=== PATIENT | male | born 1950 ===

== ENCOUNTER 2018-08-22 01:44 | Emergency (ER) | payer OTHER ==
[~2018-08-22] VITALS: Ht 170.2 cm; Wt 74.8 kg
[2018-08-22] MEDS ORDERED: FOLIC ACID1 MG (01:52)
[2018-08-22] MEDS ORDERED: LEVOTHYROXINE50 MCG (01:52)
[2018-08-22] MEDS ORDERED: ESCITALOPRAM OXA5 MG (01:52)
[2018-08-22] MEDS ORDERED: LAMICTAL XR200 MG (01:53)
[2018-08-22] MEDS ORDERED: MECLIZINE HCL25 M1 PO (08:36)
== END 2018-08-22 09:04 | disposition home or self-care (01) ==
LOC: ER 01:44
DX: R42 Dizziness and giddiness (principal)